=== PATIENT | female | born 1965 | race African-American/Black ===

== ENCOUNTER 2021-10-31 16:29 | Emergency (ER) | payer MEDICAID ==
[~2021-10-31] VITALS: Ht 162.6 cm; Wt 81.0 kg
[2021-10-31] MEDS ORDERED: SODIUM CHLORIDE 0.9% 1000ML BAG (SEPSIS BOLUS) IV ONE (21:45)
[2021-10-31] MEDS ORDERED: CEFTRIAXONE 1 G PREMIX 50 ML IV ONE (21:45)
[2021-10-31] MEDS ORDERED: ACETAMINOPHEN 325MG TABLET PO ONE (21:45)
[2021-10-31] MEDS ORDERED: VANCOMYCIN 1G PREMIX 200 ML IV SCH (21:45)
[2021-10-31 22:12] LABS: BASOPHILS % 0.2 % (0.0-2.0); EOSINOPHILS % 0.6 % (0.0-5.0); HEMATOCRIT. 38.9 % (36.0-48.0); HEMOGLOBIN. 13.2 g/dL (12.0-16.0); LYMPHOCYTES % 8.1 % (20.0-50.0); MEAN CORPUSCULAR HEMOGLOBIN 31.5 pg (28.0-32.0); MEAN CORPUSCULAR VOLUME 92.8 fL (81.0-99.0); MONOCYTES % 7.2 % (2.0-8.0); NEUTROPHILS % 83.9 % (40.0-76.0); PLATELET 152 x1000/uL (130-400); RED BLOOD CELL COUNT 4.19 mill/uL (4.2-5.4); RED CELL DISTRIBUTION WIDTH 13.8 % (11.6-14.6)
[2021-10-31 22:18] LABS: CHLORIDE 101 mEq/L (98-107)
[2021-10-31 22:19] LABS: PROTHROMBIN TIME 10.9 sec (9.6-11.0)
[2021-10-31] MEDS ORDERED: MORPHINE SULFATE 4 MG/ML CPJ (NOT FOR IM USE) IV ONE (22:30)
[2021-10-31] MEDS ORDERED: SULF1TAB48 MT (23:59)
[2021-10-31] MEDS ORDERED: CEPH500C2 MT (23:59)
[2021-11-01] MEDS ORDERED: TRAM50TA3 MT
[2021-11-01 02:56] VITALS: BP 128/76
== END 2021-11-01 02:59 | disposition home or self-care (01) ==
LOC: ER 16:29
DX: L03.115 Cellulitis of right lower limb (principal); Z20.89 Contact with and (suspected) exposure to other communicable diseases; Z88.8 Allergy status to other drugs, medicaments and biological substances
CPT/HCPCS: 36415; 80053; 83605; 84145; 85025; 85610; 87040; 93971; 96365; 96367; 96375; 99284; J0696; J2270; J3370; J7030; Z7610